=== PATIENT | male | born 1970 | race Two or more races ===

== ENCOUNTER 2024-09-07 10:43 | Emergency (ER) | payer BC, SELFPAY ==
[2024-09-07 10:56] VITALS: BP 123/86; PULSE 75; RESP 18; TEMP 37.1; O2SAT 98; BMI 31.5
--- NOTE | 2024-09-07 11:08 | PD.EDBACK ---
ED Back Injury Pain RME/HPI General Chief Complaint: Back Pain/Injury Stated Complaint: Right lower back pain radiates to right leg Time Seen by Provider: 09/07/24 11:00 Arrival date/time: 09/07/24 10:43 54-year-old male presents to the emergency department today for complaints of right lower back pain radiating down the right leg patient reports no saddle anesthesia no loss of bowel or bladder no fever nausea vomiting no dysuria. Patient reports pain worse with movement no direct injury Limitations: no limitations Related Data Home Medications ?Medication ?Instructions ?Recorded ?Confirmed omeprazole 40 mg capsule,delayed 40 mg PO QDAY GERD 11/17/20 11/17/20 release Previous Rx's ?Medication ?Instructions ?Recorded sucralfate 1 gram tablet 1 g PO QID #120 tabs 11/17/20 hydrocodone 5 mg-acetaminophen 325 1 tab PO BID PRN pain #10 tabs 09/07/24 mg tablet Allergies Allergy/AdvReac Type Severity Reaction Status Date / Time No Known Allergies Allergy Verified 09/07/24 10:48 Review of Systems Review of Systems Systems Reviewed: All systems reviewed, normal except as documented Constitutional Constitutional: Reports system reviewed and no additional complaints, except as documented, Denies fever(s) and Denies headache(s) Eyes Eyes: Reports system reviewed and no additional complaints, except as documented and Denies blurry vision ENT Ears, Nose, Mouth, and Throat: Reports system reviewed and no additional complaints, except as documented, Denies headache(s), Denies nasal congestion and Denies nasal discharge Cardiovascular Cardiovascular: Reports system reviewed and no additional complaints, except as documented, Denies chest pain and Denies dyspnea Respiratory Respiratory: Reports system reviewed and no additional complaints, except as documented, Denies chest congestion, Denies cough and Denies dyspnea Gastrointestinal Gastrointestinal: Reports system reviewed and no additional complaints, except as documented and Denies abdominal pain Musculoskeletal Musculoskeletal: Reports system reviewed and no additional complaints, except as documented and Reports back pain Integumentary/Breasts Skin/Breast: Reports system reviewed and no additional complaints, except as documented and Denies rash Neurologic Neurologic: Reports system reviewed and no additional complaints, except as documented, Reports as per HPI and Denies headache(s) Past Medical History Past Medical History NEUROLOGIC: Negative Neurological Disorders or Seizures CARDIAC: Negative Cardiac Disorders or Congestive Heart Failure RESPIRATORY: Negative Chronic Obstructive Pulmonary Disease (COPD) GASTROINTESTINAL: Negative Gastrointestinal Disorders or Hepatitis GENITOURINARY: Negative Genitourinary Disorders or Renal Disease MUSCULOSKELETAL: Negative Musculoskeletal Disorders ENDOCRINE: Negative Endocrine Disorders, Diabetes Mellitus Type 1 or Diabetes Mellitus Type 2 HEMATOLOGIC: Negative Blood Disorders OTHER HISTORY: Negative Hospitalization, Shingles, Falls, Blood Transfusions, Blood Transfusion Reaction, Anesthesia Reactions, Chemotherapy, Radiation Therapy, MRSA, Chicken Pox, Measles, Mumps or Cancer Surgical History SURGICAL: Negative Cardiac Surgery, Endocrine Surgery or Abdominal Surgery Social History SMOKING STATUS: Never smoker ED Exam General Limitations: Present no limitations General appearance: Present alert and in no apparent distress Head Head exam: Present atraumatic Eye Eye exam: Present normal appearance, PERRL and EOMI ENT ENT exam: Present normal exam, normal oropharynx and mucous membranes moist Neck Neck exam: Present normal inspection, full ROM and trachea midline Chest Chest inspection: Present normal inspection and symmetric chest wall rise Respiratory Respiratory exam: Present normal lung sounds bilaterally Cardiovascular Cardiovascular exam: Present regular rate, normal rhythm and normal heart sounds Abdominal Exam Abdominal exam: Present soft and normal bowel sounds; Absent distention or tenderness Extremities Exam Extremities exam: Present normal inspection and full ROM Back Exam Back exam: Present normal inspection, full ROM, tenderness, muscle spasm, paraspinal tenderness, sciatic notch tenderness (R) and straight leg raise (R); Absent CVA tenderness (R) or CVA tenderness (L) Neurological Exam Neurological exam: Present alert, oriented X3, CN II-XII intact, normal gait and reflexes normal; Absent motor sensory deficit Psychiatric Psychiatric exam: Present normal affect and normal mood Skin Skin exam: Present warm, dry, intact and normal color Course Quality Measures none Orders Category Date Time Status Dexamethasone Inj [Decadron Inj] Med 09/07/24 11:06 Discontinued 10 mg PO X1 ONE HYDROcodone*/APAP 5/325 [Desmet 5/325] Med 09/07/24 11:06 Discontinued 1 tab PO X1 ONE Ketorolac Inj [Toradol Inj] Med 09/07/24 11:06 Discontinued 30 mg IM X1 ONE Vital Signs Vital signs: Vital Signs Temperature 98.7 F 09/07/24 10:56 Pulse Rate 75 09/07/24 10:56 Respiratory Rate 18 09/07/24 10:56 Blood Pressure 123/86 H 09/07/24 10:56 Pulse Oximetry (%) 98 09/07/24 10:56 Oxygen Delivery Method Room Air 09/07/24 10:56 O2 saturation 98% room air wnl Back Pain / Injury MDM Narrative MDM Narrative:: 54-year-old male presents to the emergency department today for complaints of right lower back pain radiating down the right leg patient reports no saddle anesthesia no loss of bowel or bladder no fever nausea vomiting no dysuria. Patient reports pain worse with movement no direct injury On exam symptoms are consistent with sciatica patient be will be treated symptomatically patient is instructed to have MRI if symptoms persist or worsen Patient discharged home in no distress to follow-up with primary care doctor in the next 24 to 48 hours and for any worsening symptoms to return to the ER immediately Patient data External records reviewed:: [facility] previous records Clinical information provided by:: patient Social determinants that could affect healthcare access:: none Patient has the following chronic illnesses:: See history How is presenting disease/condition affected by chronic disease/condition?: uneffected by Evaluation data The following diagnostics were reviewed and interpreted by me:: other (specify) (N/A) Lab and/or radiology exams considered but not ordered:: Considered not ordered Interpretation Summary: N/A Medications / Prescriptions Medications or Prescriptions considered but not ordered:: Given Medication administrations:: Medication Administration History Discontinued Medications Hydrocodone Bitart/Acetaminophen (Hydrocodone/Apap 5/325 Tablet) 1 tab PO X1 ONE Stop: 09/07/24 11:07 Last Admin: 09/07/24 11:22 Dose: 1 tab Documented By: Dexamethasone Sodium Phosphate (Dexamethasone Sod Phos Inj 10 Mg/Ml Vial) 10 mg PO X1 ONE Stop: 09/07/24 11:07 Last Admin: 09/07/24 11:25 Dose: 10 mg Documented By: Ketorolac Tromethamine (Ketorolac Inj 30 Mg/Ml Vial) 30 mg IM X1 ONE Stop: 09/07/24 11:07 Last Admin: 09/07/24 11:23 Dose: 30 mg Documented By: Given Consultations Consultation(s) initiated? (list below): No Diagnosis Differential diagnosis back pain/injury: lumbar radiculopathy, strain of lumbar region, renal colic and pyelonephritis Most likely diagnosis given after review of the tests above:: Back pain Admission Indicated Admission indicated?: not indicated Admission Request Was there a request for admission?: No Disposition Plan Disposition Plan: Discharge Discharge Attestation Discharge Attestation: The patient and all family members were given an opportunity to ask questions and understood the discharge instructions. Discharge instructions specifically effects, indications for sooner follow up or return to the emergency department, and the expected course of current diagnosis. Patient condition: Stable Discharge Plan Plan Patient Disposition: HOME (Self Care) Discharge Disposition comment: Stable Prescriptions/Referrals Prescriptions/Med Rec: New hydrocodone-acetaminophen 5-325 mg tablet 1 tab PO BID MDD 10 PRN (Reason: pain) Qty: 10 0RF No Action omeprazole 40 mg capsule,delayed release(DR/EC) 40 mg PO QDAY Patient Comments: take 1 capsule by mouth once daily BEFORE A MEAL sucralfate 1 gram tablet 1 g PO QID Qty: 120 0RF Problem List Clinical Impression: Strain of lumbar region, Sciatica Patient/Caregiver Discharge Instructions Education Materials: ED Sciatica Additional Instructions: Please follow up with your primary care doctor in the next 24-48hrs for any worsening symptoms return here immediately Print Language: Belgian Stand Alone Forms: Rachel Award Info., Work/School Release, Patient Portal Info Letter RODRIGO/ABNER Supervising Physician RODRIGO/ABNER Supervising Physician: Dr [email or web address]
[2024-09-07] MEDS: HYDROcodone/APAP 5/325 TABLET 1 TAB PO (11:22)
[2024-09-07] MEDS: KETOROLAC INJ 30 MG/ML VIAL IM (11:23)
[2024-09-07] MEDS: DEXAMETHASONE SOD PHOS INJ 10 MG/ML VIAL PO (11:25)
== END 2024-09-07 11:36 | disposition home or self-care (01) ==
LOC: SERX 11:17
PROVIDERS: Emergency Provider Nurse Practitioner Primary Care; PCP Family Medicine
DX: S39.012A Strain of muscle, fascia and tendon of lower back, initial encounter (principal); M54.41 Lumbago with sciatica, right side; X58.XXXA Exposure to other specified factors, initial encounter
CPT/HCPCS: 96372; 99283; J1100; J1885; A9270